=== PATIENT | female | born 1980 | race Caucasian/White ===

== ENCOUNTER 2022-01-19 12:23 | Emergency (ER) | payer OTHER ==
[~2022-01-19 12:23] MED LIST: ALBUTEROL1.25 MG/3 INH; LEVAQUIN500 MG PO; NEBULIZER UNIT
[2022-01-19 13:29] LABS: HEMOGLOBIN 15.8 gm/dl (12.3-15.3); RED BLOOD COUNT 5.14 M/UL (4.00-5.10); WHITE BLOOD COUNT 11.2 K/UL (4.5-11.0)
[2022-01-19 13:53] LABS: BUN/CREATININE RATIO 11 (0-10)
[2022-01-19] MEDS ORDERED: TORADOL 10 MG T10 MG PO (19:43)
[2022-01-19] MEDS ORDERED: OMNICEF 300 MG300 MG PO (19:43)
[2022-01-19] MEDS ORDERED: METRONIDAZOLE500 MG PO (19:43)
[2022-01-19] MEDS ORDERED: PHENERGAN 25 MG25 M1 PO (19:43)
== END 2022-01-19 20:02 | disposition home or self-care (01) ==
LOC: ER1 12:23
PROVIDERS: Physician Assistant Medical
DX: N13.2 Hydronephrosis with renal and ureteral calculous obstruction (principal); F17.210 Nicotine dependence, cigarettes, uncomplicated
CPT/HCPCS: 71045; 80053; 81001; 83605; 83690; 85025; 96374; 96375; 99284; J0696; J1885; J2405; J2550; Q9967

== ENCOUNTER → 2022-02-20 | Outpatient (CLI) | payer OTHER ==
[~2022-02-20] MED LIST changes: +METRONIDAZOLE500 MG PO; +OMNICEF 300 MG300 MG PO; +PHENERGAN 25 MG25 M1 PO; +TORADOL 10 MG T10 MG PO
== END ==
LOC: MAMO 13:30
DX: Z12.31 Encounter for screening mammogram for malignant neoplasm of breast (principal)
CPT/HCPCS: 77063; 77067